=== PATIENT | male | born 1940 | race Caucasian/White ===

== ENCOUNTER → 2016-10-16 | Outpatient (CLI) | payer MEDICARE ==
[~2016-10-16] VITALS: Ht 182.9 cm; Wt 106.5 kg
[~2016-10-16] MED LIST: ASCO10002 PO; ASCO10004 PO; ASPI81TA82 PO; AUGM500T7 PO; CHLORHEXIDINE GLUCONATE 2 % 1 PACK (2 CLOTHS) TOPICAL PRN; DEXTROSE 5% IN WATE 1000ML INJ 1,000 ML IV SCH; DULO20 PO; INSULIN HUMAN REGULAR 1,000 UNITS/10 ML VIAL SQ PRN; LACTATED RINGER'S 1000 ML IV PRN; LORT5TAB PO; LYRI150C PO; METH1TAB PO; METH1TAB2 PO; METOPROLOL TARTRATE 25 MG TAB PO PRN; MIRA33502 PO; MIRA33504 PO; MULT-4 PO; NEXI40CA PO; PERI8.6T PO; POVIDONE IODINE 5% (ANTISEPSIS KIT) 4 APPLICATIONS EACH NARE PRN; PREG25 PO; PROPOFOL 200 MG/20 ML AMP IV ONE; SODIENE9 PR; SODIUM CHLORID 0.9% 500 ML IV PRN; VITA100T15 PO; VITA500S3 PO; ZOCO10TA PO
[2016-10-16 14:02] VITALS: BP 152/79; PULSE 79; RESP 18; TEMP 98.5; O2SAT 97
[2016-10-16 15:40] VITALS: TEMP 97.7
[2016-10-16 15:50] VITALS: BP 151/69; PULSE 72; RESP 16; O2SAT 100
--- NOTE | 2016-10-17 16:19 | EKG ---
Date Performed: 10/16/2016 Time Performed: 13:33:48 PTAGE: 76 years EKG: Sinus rhythm WITH SINUS ARRHYTHMIA NONSPECIFIC T-WAVE ABNORMALITY BORDERLINE ECG PREVIOUS TRACING : 10/31/2012 16.20.54 Compared to prior tracing no significant change DOCTOR: Judy Rajput Interpretating Date/Time 10/17/2016 16:18:13
--- NOTE | 2016-10-18 10:36 | MR ---
cc: CODIE ROQUE DATE: 10/16/2016 PREOPERATIVE DIAGNOSIS: Past history of colon polyps. Rectal bleeding. POSTOPERATIVE DIAGNOSIS: Sigmoid colon polyp 30 cm. PROCEDURE: Colonoscopy and fulguration of colon polyp. SURGEON: Dr. Roque. ANESTHESIA: Monitored anesthesia care. OPERATIVE FINDINGS: This patient is well known to me. He is paraplegic for 35 years. He has had multiple polyps in the past. He has had rectal bleeding in the past. Previously profuse rectal bleeding five years ago with GI bleed probably due to diverticular disease. He has had small polyps adenomatous in nature in the past. He recently had a small amount of rectal bleeding and it has been five years since his last colonoscopy and he is due. At colonoscopy his prep was only fair. He had some particulate matter scattered throughout the colon primarily on the right side. I was able to reach the cecum and the ileocecal valve and the base of the appendix was clearly seen. There was a small sigmoid colon polyp about 5 millimeters at about 30 cm in the sigmoid colon that was fulgurated. OPERATIVE TECHNIQUE The patient was placed on the table in the supine position. After adequate monitored anesthesia care, the digital rectal exam was done. He has large fibrotic internal and external hemorrhoids. The colonoscope was introduced through the anal canal, to the rectum, sigmoid colon, descending, transverse colon, ascending colon to the cecum. The ileocecal valve was seen as was the base of the appendix. The scope was sequentially withdrawn, sequentially looking at the mucosa, getting a fair look at the mucosa because of the prep. The polyp was treated as mentioned above. He did have some mild to moderate sigmoid diverticulosis as well. Scope was eventually withdrawn. The patient tolerated the procedure well, left the GI lab in good condition. MD ARTHUR Holt/CHETNA /3:46 PM /10:31 AM
== END ==
LOC: HEND 13:01
PROVIDERS: ATTEND Colon & Rectal Surgery
DX: K62.5 Hemorrhage of anus and rectum (principal); Z86.010 Personal history of colon polyps; D12.5 Benign neoplasm of sigmoid colon; G82.20 Paraplegia, unspecified; K64.4 Residual hemorrhoidal skin tags; K64.8 Other hemorrhoids; K57.30 Diverticulosis of large intestine without perforation or abscess without bleeding; I49.8 Other specified cardiac arrhythmias
CPT/HCPCS: 00810; 45388; 93005; J7120

== ENCOUNTER 2017-05-13 19:51 | Emergency (ER) | payer MEDICARE ==
[~2017-05-13] VITALS: Ht 182.9 cm; Wt 108.5 kg
[~2017-05-13 19:51] MED LIST changes: -ASCO10004 PO; -ASPI81TA82 PO; -CHLORHEXIDINE GLUCONATE 2 % 1 PACK (2 CLOTHS) TOPICAL PRN; +CYAN100 PO; -DEXTROSE 5% IN WATE 1000ML INJ 1,000 ML IV SCH; -INSULIN HUMAN REGULAR 1,000 UNITS/10 ML VIAL SQ PRN; -LACTATED RINGER'S 1000 ML IV PRN; -LORT5TAB PO; -METH1TAB2 PO; -METOPROLOL TARTRATE 25 MG TAB PO PRN; -MIRA33502 PO; -MULT-4 PO; -NEXI40CA PO; -POVIDONE IODINE 5% (ANTISEPSIS KIT) 4 APPLICATIONS EACH NARE PRN; -PREG25 PO; -PROPOFOL 200 MG/20 ML AMP IV ONE; -SODIUM CHLORID 0.9% 500 ML IV PRN; -VITA100T15 PO; -VITA500S3 PO
[2017-05-13 19:57] VITALS: BP 133/89; PULSE 113; RESP 18; TEMP 98.2; O2SAT 96
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
[2017-05-13] MEDS ORDERED: MIRA3350 PO (20:28)
[2017-05-13] MEDS ORDERED: SENN8.6T13 (20:28)
[2017-05-13] MEDS ORDERED: ASPI-516 CHEW (20:28)
[2017-05-13] MEDS ORDERED: ASCO500T PO (20:28)
[2017-05-13] MEDS ORDERED: HYDR-3583 (20:28)
[2017-05-13] MEDS ORDERED: SODIUM CHLORIDE 0.9% FLUSH 10 ML FLUSH IV FLUSH PRN (20:30)
[2017-05-13 20:56] LABS: CHLORIDE 102 MEQ/L (98-107); POTASSIUM 3.7 MEQ/L (3.5-5.1); SODIUM (NA) 138 MEQ/L (136-145)
[2017-05-13 20:59] LABS: ANION GAP 9 MEQ/L (5-15); BICARBONATE 27.4 MEQ/L (21.0-32.0)
[2017-05-13 21:00] LABS: AUTOMATED NEUTROPHIL # 9.7 TH/MM3 (1.8-7.7); BASOPHIL % 0.2 % (0.0-2.0); BLOOD UREA NITROGEN 23 MG/DL (7-18); EOSINOPHIL % 0.3 % (0.0-4.0); HEMATOCRIT 43.8 % (39.0-51.0); HEMO FLAGS DIFF FINAL; INTERNATIONAL NORMALIZED RATIO 0.9 RATIO; LYMPH % 8.8 % (9.0-44.0); MEAN CELL VOLUME 96.4 FL (80.0-100.0); MEAN CORPUSCULAR HEMOGLOBIN 32.7 PG (27.0-34.0); MEAN CORPUSCULAR HGB CONC 33.9 % (32.0-36.0); MONO % 7.5 % (0.0-8.0); NEUT % 83.2 % (16.0-70.0); PLATELET COUNT 384 TH/MM3 (150-450); PROTHROMBIN TIME - PATIENT 9.6 SEC (9.8-11.6); RED BLOOD COUNT 4.55 MIL/MM3 (4.50-5.90); RED CELL DISTRIBUTION WIDTH 12.5 % (11.6-17.2); WHITE BLOOD COUNT 11.6 TH/MM3 (4.0-11.0)
[2017-05-13 21:03] LABS: ALT (GPT) 21 U/L (12-78); AST (GOT) 16 U/L (15-37); GLOMERULAR FILTRATION RATE 97 ML/MIN (>89)
[2017-05-13 21:04] LABS: TOTAL BILIRUBIN ADULT 0.2 MG/DL (0.2-1.0)
[2017-05-13 21:05] LABS: ALKALINE PHOSPHATASE 95 U/L (45-117)
--- NOTE | 2017-05-13 21:34 | RADRPT ---
EXAM DATE/TIME: 05/13/2017 20:51 [facility] COMPARISON: No previous studies available for comparison. INDICATIONS : Left thigh hematoma. Parapalegia. MEDICAL HISTORY : Methicillin-resistant Staphylococcus aureus. Hypercholesterolemia. Myocardial infarction. GERD. Pa rapalegia. CAD. Hypertension. SURGICAL HISTORY : Tonsillectomy. Rotator cuff, left. Coronary artery stent. Lumbar laminectomy. Cholecystectomy. ENCOUNTER: Initial ACUITY: 1 day PAIN SCORE: 0/10 LOCATION: Left leg. TECHNIQUE: Venous ultrasound of the leg was performed from the inguinal ligament to the proximal calf. Real-yeimy e, color Doppler and spectral tracing, compression and augmentation techniques were used. FINDINGS: There is normal compressibility of the deep venous system from the inguinal region to the proximal ca lf. No echogenic clot is seen in the lumen of the common femoral, femoral, popliteal, and posterior tibial veins. There is a normal response of the venous system to proximal and distal augmentation an d respiration. CONCLUSION: Normal examination. Maxi Corbin MD on May 13, 2017 at 21:32 Board Certified Radiologist. This report was verified electronically.
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
[2017-05-13 21:36] VITALS: RESP 16; O2SAT 98
[2017-05-13 22:11] VITALS: BP 160/66; PULSE 105; RESP 16; O2SAT 96
== END 2017-05-13 22:27 | disposition home or self-care (01) ==
LOC: PHED 19:51
DX: S70.12XA Contusion of left thigh, initial encounter (principal); E78.00 Pure hypercholesterolemia, unspecified; G82.20 Paraplegia, unspecified; M79.89 Other specified soft tissue disorders; X58.XXXA Exposure to other specified factors, initial encounter; Z79.82 Long term (current) use of aspirin
CPT/HCPCS: 80053; 85025; 85610; 85730; 93926; 93971; 99285